=== PATIENT | female | born 1990 | race Caucasian/White ===

== ENCOUNTER → 2017-01-13 | Outpatient (CLI) | payer OTHER ==
[~2017-01-13] MED LIST: HYDROCODON-ACE1 EAC7 PO; HYDROCODON-ACE1 EAC9 PO; METAXALONE400 MG PO; NO MEDICATIONS; VOLTAREN75 MG PO
--- NOTE | ~2017-01-13 | XA230 ---
[facility] A Service of [facility] & [facility] RADIOLOGY TEXT RESULTS PATIENT: JOSÉ DURAN LOCATION: [facility] : [birth year] UNIT #: [id number] AGE: [address]: Rj Rod MD SEX: F ORDER DR: [id number] [facility]. [place], [place] [address] [id number] O MR#: [id number] Acc #: [id number] NAME: JOSÉ DURAN : 1990 SEX: F STUDY DATE/TIME: 01/13/2017 11:11 UNIT: [facility] ROOM: STUDY DESCRIPTION: XA FNA Attending Physician: Rj Rod M.D. Referring Physician: Rj Rod M.D. Ordering Physician: Rj Rod M.D. Primary Care Physician: No Primary Care Physician MEDICAL IMAGING REPORT This report is preliminary unless electronic signature is present EXAM Ultrasound-guided thyroid needle aspiration 01/13/2017. HISTORY Bilateral thyroid nodules. PROCEDURE Initially, bilateral neck ultrasound was performed. No suspicious adenopathy was seen in the neck on either side. Subsequently, both right and left thyroid nodules were aspirated with a 25-gauge needle. Initial cytopathologic evaluation suggested a technically adequate specimen. There were no complications. IMPRESSION 1. No evidence of suspicious cervical adenopathy in the neck on either side. 2. Successful needle aspiration of the right and left thyroid nodules without complication. Dictated by... Tho Henley M.D. THIS IS AN ELECTRONICALLY VERIFIED REPORT Tho Henley M.D. at 01/17/2017 10:34 AM CRISTY/lupis TD: 01/14/2017 16:04 JOB #: [id number] MEDICAL IMAGING REPORT Page 1 of 1 COPY
--- NOTE | ~2017-01-13 | CR97 ---
[facility] A Service of [facility] & [facility] RADIOLOGY TEXT RESULTS PATIENT: JOSÉ DURAN LOCATION: [facility] : [birth year] UNIT #: [id number] AGE: [address]: Rj Rod MD SEX: F ORDER DR: [id number] [facility] [address] [facility]. [place], [place] [address] [id number] O MR#: [id number] Acc #: [id number] NAME: JOSÉ DURAN : 1990 SEX: F STUDY DATE/TIME: 01/13/2017 11:09 UNIT: [facility] ROOM: STUDY DESCRIPTION: CR Esophagram Attending Physician: Rj Rod M.D. Referring Physician: Rj Rod M.D. Ordering Physician: Rj Rod M.D. Primary Care Physician: No Primary Care Physician MEDICAL IMAGING REPORT This report is preliminary unless electronic signature is present EXAM Esophagram and swallowing study, 01/13/2017. HISTORY Difficulty swallowing. PROCEDURE Study performed with 0.8 minutes of fluoroscopy and a total of 9 spot images and or multi-imaged sequences. FINDINGS Normal swallowing mechanism. No mass or mass effect. No stricture or mucosal fold thickening. IMPRESSION Normal esophagram including normal swallowing mechanism. Dictated by... Tho Henley M.D. THIS IS AN ELECTRONICALLY VERIFIED REPORT Tho Henley M.D. at 01/17/2017 10:33 AM CRISTY/aníbal TD: 01/14/2017 12:26 JOB #: [id number] MEDICAL IMAGING REPORT Page 1 of 1 COPY
== END | disposition home or self-care (01) ==
LOC: CIVR 10:01
DX: E04.2 Nontoxic multinodular goiter (principal); R13.10 Dysphagia, unspecified
CPT/HCPCS: 74220; 76942; 88172; 88173; 88305

== ENCOUNTER → 2017-02-10 | Outpatient (CLI) | payer OTHER ==
--- NOTE | ~2017-02-10 | EKG ---
PATIENT: JOSÉ DURAN UNIT #: [id number] Ventricular Rate: 84 BPM Atrial Rate: 84 BPM P-R Interval: 124 ms QRS Duration: 82 ms Q-T Interval: 374 ms QTC Calculation(Bezet): 441 ms P Soso: 72 degrees Calculated R Soso: 89 degrees Calculated T Soso: -20 degrees Diagnosis Line: Normal sinus rhythm Diagnosis Line: Possible Left atrial enlargement Diagnosis Line: T wave abnormality, consider inferior ischemia Diagnosis Line: Abnormal ECG Diagnosis Line: No previous ECGs available Diagnosis Line: Confirmed by EPIFANIO MAHARAJ MD ([id number]) on Diagnosis Line: 02/10/2017 7:10:58 PM INTERPRETING MD: CAROL ANN REYNA
[2017-02-10 13:40] LABS: HEMATOCRIT 42.4 % (35.0-45.0); HEMOGLOBIN 14.2 gm/dL (12.0-16.0); MEAN CELL VOLUME 94.1 FL (83-96); MEAN CORPUSCULAR HEMOGLOBIN 31.4 PG (28-34); MEAN CORPUSCULAR HGB CONC 33.4 g/dL (30-36); RED BLOOD COUNT 4.51 X10e (3.90-5.30); RED CELL DISTRIBUTION WIDTH 12.3 % (11.0-15.5)
[2017-02-10 14:09] LABS: ALBUMIN SERUM 4.4 g/dL (3.5-5.0); BILIRUBIN,TOTAL 0.8 mg/dL (0.2-2.0); CALCIUM SERUM 9.2 mg/dL (8.4-10.2); CREATININE SERUM 0.6 mg/dL (0.6-1.4); GLOM FILT RATE Estimated 126.7 mL/min (>60); POTASSIUM 3.8 mmol/L (3.5-5.1); PROTEIN TOTAL SERUM 6.9 g/dL (6.0-8.3)
== END | disposition home or self-care (01) ==
LOC: CAMB 12:55
PROVIDERS: Specialist
DX: Z01.818 Encounter for other preprocedural examination (principal); E07.9 Disorder of thyroid, unspecified
CPT/HCPCS: 36415; 80053; 85027; 93005

== ENCOUNTER 2017-02-17 08:43 | Observation (INO) | payer OTHER ==
--- NOTE | ~2017-02-17 | OR ---
Unit #: [id number] #: [id number] Patient: JOSÉ DURAN [id number] [address] [place], [place] [address] [id number] Cristy MR#: [id number] NAME: JOSÉ DURAN ROOM: [facility] Date of Procedure: 02/17/2017 Admission Date: 02/17/2017 Surgeon: Rj Rod M.D. : 1990 Attending Physician: Rj Rod M.D. 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 PROCEDURES PERFORMED Neck exploration with left hemithyroidectomy and right subtotal thyroidectomy. RES COUNSELOR Rubén. ANESTHESIA General endotracheal anesthesia. ESTIMATED BLOOD LOSS Less than 10 mL. INDICATIONS FOR PROCEDURE Ms. Duran is a 26-year-old female, who was undergoing an evaluation by her primary care physician for complaints of hoarseness and dysphagia and ultrasound of the neck was ordered by the primary care physician, and it was read as having bilateral thyroid nodules that were indeterminate. She was referred and a swallowing study showed no abnormalities of her swallowing and she did not have an enlarged thyroid or any evidence of compressive symptoms on ultrasound of the trachea. A subsequent fine-needle aspirate at [facility] by revealed Casar three follicular lesions that were indeterminate. Based on this, an mRNA study was done and the mRNA came back as the lesions had a 62% chance of being malignant. Based on this information, I discussed subtotal versus total thyroidectomy with the patient. She understood and agreed to proceed. DESCRIPTION OF PROCEDURE The patient was admitted to [facility], positively identified, and transported to the operating room, and after induction of general endotracheal anesthesia, she received IV antibiotics per SCIP protocol. A shoulder roll was placed. Her neck was hyperextended and she was prepped and draped in usual sterile fashion. A transverse collar incision was made 2 fingerbreadths above the sternal notch from the sternocleidomastoid to sternocleidomastoid. The superior and inferior Unit #: [id number] #: [id number] Patient: JOSÉ DURAN platysma flaps were raised. The strap muscles were in the midline and the thyroid gland was exposed. On the ultrasound in the left gland, the nodule was noted to be in the mid portion of the thyroid gland. I palpated the gland and could not identify the discrete nodule, so the superior pole of the thyroid gland was mobilized using Harmonic Scalpel and then the inferior pole was mobilized using a Harmonic Scalpel. In a lateral to medial direction, the gland was dissected up onto the anterior portion of the trachea and then the ligament of Mauricio was taken down with the Harmonic Scalpel and the lesion was sent to the laboratory. On frozen section, Dr. Moura could not identify discrete nodule and on frozen section of several areas of fibrosis, there was no evidence of malignancy. In the interim, I explored the right thyroid gland and she had a very easily palpable discrete nodule in the inferior portion of the gland consistent with a thyroid. The inferior pole of the right thyroid was mobilized and again dissected down from a lateral to medial direction onto the anterior portion the trachea and divided using the Harmonic Scalpel. We preserved the upper pole of the right thyroid gland to prevent her from being a thyroid postoperatively if the lesion was benign. The lesion was sent to the laboratory. It was evaluated by Dr. Moura and Dr. 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 There was no evidence of capsular invasion. During the dissection, the parathyroid glands were identified and preserved. There was good hemostasis. The strap muscles were then reapproximated in the midline using 3-0 silk suture. The platysmal layer was closed with 3-0 Vicryl running suture and then the skin was reapproximated with 4-0 Monocryl running subcuticular closure and Dermabond skin adhesive. Sponges and needle counts were correct x3. The patient tolerated the procedure well and transported to recovery in stable condition. In the recovery room, she was breathing without stridor and her voice although a little hoarse was normal. Sponges and needle counts were correct x3. Findings were discussed with the family. She will be admitted on 23-hour observation. Dictated by... Flaquito Rojo/liane TD: 02/18/2017 01:51 JOB #: [id number] OPERATIVE REPORT Page 1 of 1 X Rj Rod MD PROCEDURE OPERATIVE NOTE
--- NOTE | ~2017-02-17 | DS ---
Unit #: [id number] #: [id number] Patient: JOSÉ DURAN [id number] [address] [address] [id number] MR#: [id number] NAME: JOSÉ DURAN ROOM: 225 Age: 26 Sex: F Admission Date: 02/17/2017 : 1990 Discharge Date: 02/18/2017 Attending Physician: Rj Rod M.D. Primary Care Physician: Jennifer Porter DISCHARGE SUMMARY HISTORY AND HOSPITAL COURSE Ms. Duran is a 26-year-old female who was diagnosed as an outpatient with bilateral thyroid nodules that were suspicious for malignancy. She was brought in the morning of surgery where she underwent a subtotal thyroidectomy and on frozen section the nodules appeared to be benign. She is admitted for observation overnight. She had no voice changes. She is able to swallow normally. Her serum calcium remained normal and she is able to tolerate a regular diet. She will be discharged home today with instructions to undergo diet and activity as tolerated. She may shower and pat her wound dry. She was left a prescription for [place] 5 mg tablets for pain control. She is to follow up in the office in one to two weeks. The patient understood these instructions. Her Med Reconciliation sheet was completed. Dictated by... Rj Rod M.D. SHON/saman TD: 02/19/2017 10:13 JOB #: [id number] DISCHARGE SUMMARY Page 1 of 1 X Rj Rod MD X DISCHARGE SUMMARY
[~2017-02-17 08:43] MED LIST changes: -HYDROCODON-ACE1 EAC7 PO; -HYDROCODON-ACE1 EAC9 PO
[2017-02-18 06:15] LABS: HEMATOCRIT 36.8 % (35.0-45.0); HEMOGLOBIN 12.3 gm/dL (12.0-16.0); MEAN CORPUSCULAR HEMOGLOBIN 31.3 PG (28-34); MEAN CORPUSCULAR HGB CONC 33.3 g/dL (30-36); MEAN PLATELET VOLUME 9.1 FL (6.5-11.5); RED BLOOD COUNT 3.92 X10e (3.90-5.30); RED CELL DISTRIBUTION WIDTH 12.2 % (11.0-15.5); WHITE BLOOD COUNT 12.8 X10e3 (4.0-10.5)
[2017-02-18 06:46] LABS: BUN/CREATININE RATIO 11.66; CREATININE SERUM 0.6 mg/dL (0.6-1.4); GLOM FILT RATE Estimated 126.7 mL/min (>60); POTASSIUM 3.6 mmol/L (3.5-5.1)
[2017-02-18 06:49] LABS: CALCIUM SERUM 8.3 mg/dL (8.4-10.2)
[2017-02-18] MEDS ORDERED: HYDROCODON-ACE1 EAC9 PO (09:07)
[2017-02-18] MEDS ORDERED: HYDROCODON-ACE1 EAC7 PO (09:08)
== END 2017-02-18 09:29 | disposition home or self-care (01) ==
LOC: CSUR 08:43 → CPACUOF 12:11 → CSUR 13:16 → CPACUOF 14:22 → C2A 14:22
PROVIDERS: Specialist
DX: E04.2 Nontoxic multinodular goiter (principal); K21.9 Gastro-esophageal reflux disease without esophagitis; F17.200 Nicotine dependence, unspecified, uncomplicated
CPT/HCPCS: 80048; 82310; 84703; 85027; 88307; 88331; 96374; 96375; G0378; J0131; J0330; J0690; J1100; J1885; J2250; J2270; J2405; J3010